=== PATIENT | female | born 1935 | race Caucasian/White ===

== ENCOUNTER 2021-12-01 12:34 | Inpatient (IN) | payer MEDICAID, OTHER ==
[~2021-12-01] VITALS: Ht 162.6 cm; Wt 53.6 kg
[2021-12-01 13:18] LABS: BASOPHILS % 0.5 % (0.0-2.0); EOSINOPHILS % 1.1 % (0.0-5.0); HEMATOCRIT. 30.6 % (36.0-48.0); HEMOGLOBIN. 9.9 g/dL (12.0-16.0); LYMPHOCYTES % 18.1 % (20.0-50.0); MEAN CORPUSCULAR HEMOGLOBIN 30.4 pg (28.0-32.0); MEAN CORPUSCULAR VOLUME 94.3 fL (81.0-99.0); NEUTROPHILS % 77.3 % (40.0-76.0); PLATELET 240 x1000/uL (130-400); RED BLOOD CELL COUNT 3.25 mill/uL (4.2-5.4); RED CELL DISTRIBUTION WIDTH 13.4 % (11.6-14.6)
[2021-12-01 13:28] LABS: CHLORIDE 110 mEq/L (98-107)
[2021-12-01] MEDS ORDERED: ALBUTEROL (0.5%) 2.5MG/0.5ML NEB HHN ONE (14:45)
[2021-12-01] MEDS ORDERED: DEXTROSE 50% WATER 50ML SYRINGE IV NR (14:45)
[2021-12-01] MEDS ORDERED: CALCIUM CHLORIDE 1,000 MG in DEXT 5% WATER 90 ML IV ONE (14:45)
[2021-12-01] MEDS ORDERED: SODIUM BICARBONATE 8.4% 1 MEQ/ML 50ML SYR IV ONE (14:45)
[2021-12-01] MEDS ORDERED: INSULIN REGULAR (HUMULIN R) 300UNITS/3ML VIAL IV ONE (14:45)
[2021-12-01] MEDS ORDERED: SODIUM POLYSTYRENE SULFONATE 15 G/60 ML BOT PO ONE (15:15)
[2021-12-01 21:15] VITALS: BP 175/51
[2021-12-01] MEDS ORDERED: AMLO5TAB4 MT (22:44)
[2021-12-01] MEDS ORDERED: PIOG15TA68 MT (22:47)
[2021-12-01] MEDS ORDERED: ASPI-864 MT (22:47)
[2021-12-01] MEDS ORDERED: ATOR40TA70 MT (22:47)
[2021-12-01] MEDS ORDERED: SERT25TA74 MT (22:47)
[2021-12-01] MEDS ORDERED: ACETAMINOPHEN 325MG TABLET PO PRN (23:45)
[2021-12-01] MEDS ORDERED: TRAMADOL 50MG TABLET PO PRN (23:45)
[2021-12-01] MEDS: AMLODIPINE 5MG TABLET PO SCH (23:45)
[2021-12-01] MEDS ORDERED: ONDANSETRON HCL 4MG/2ML INJ IV PRN (23:45)
[2021-12-02] VITALS (9 sets, daily range): BP systolic 122–153; BP diastolic 40–59
[2021-12-02] MEDS ORDERED: DEXTROSE 50% WATER 50ML SYRINGE IV PRN
[2021-12-02] MEDS: SODIUM CHLORIDE 0.9% 1,000 ML IV SCH ×2 (04:36→12:09)
[2021-12-02 06:38] LABS: BASOPHILS % 0.5 % (0.0-2.0); HEMATOCRIT. 26.6 % (36.0-48.0); LYMPHOCYTES % 22.3 % (20.0-50.0); MEAN PLATELET VOLUME 9.1 fl (7.4-10.4); MONOCYTES % 6.4 % (2.0-8.0); NEUTROPHILS % 69.8 % (40.0-76.0); PLATELET 220 x1000/uL (130-400); RED BLOOD CELL COUNT 2.89 mill/uL (4.2-5.4); RED CELL DISTRIBUTION WIDTH 13.3 % (11.6-14.6)
[2021-12-02] MEDS ORDERED: BLOOD SUGAR DIAGNOSTIC STRIP TEST SCH (07:20)
[2021-12-02] MEDS: BLOOD SUGAR DIAGNOSTIC STRIP TEST SCH ×4 (07:43→20:51)
[2021-12-02] MEDS: INSULIN LISPRO 100 UNITS/ML SUBCUT SCH ×4 (07:43→20:51)
[2021-12-02] MEDS: ASPIRIN 81MG TABLET PO SCH (10:11)
[2021-12-02] MEDS: AMLODIPINE 5MG TABLET PO SCH (10:12)
[2021-12-02] MEDS ORDERED: SODIUM POLYSTYRENE SULFONATE 15 G/60 ML BOT PO NR (13:00)
[2021-12-02] MEDS ORDERED: ATORVASTATIN CALCIUM 40MG TABLET PO SCH (21:00)
[2021-12-02] MEDS ORDERED: SERTRALINE HCL 25MG TABLET PO SCH (21:00)
[2021-12-03] VITALS: BP 141/51
[2021-12-03] MEDS: SODIUM CHLORIDE 0.9% 1,000 ML IV SCH (02:57)
[2021-12-03 04:00] VITALS: BP 138/49
[2021-12-03] MEDS: BLOOD SUGAR DIAGNOSTIC STRIP TEST SCH ×2 (06:28→11:58)
[2021-12-03] MEDS: INSULIN LISPRO 100 UNITS/ML SUBCUT SCH ×2 (07:30→12:03)
[2021-12-03 08:00] VITALS: BP 148/43
[2021-12-03] MEDS: ASPIRIN 81MG TABLET PO SCH (09:37)
[2021-12-03] MEDS: AMLODIPINE 5MG TABLET PO SCH (09:37)
[2021-12-03 12:00] VITALS: BP 133/39
[2021-12-03 12:31] LABS: BASOPHILS % 0.6 % (0.0-2.0); EOSINOPHILS % 2.9 % (0.0-5.0); HEMATOCRIT. 28.2 % (36.0-48.0); HEMOGLOBIN. 9.4 g/dL (12.0-16.0); LYMPHOCYTES % 21.7 % (20.0-50.0); MEAN CORPUSCULAR HEMOGLOBIN 30.9 pg (28.0-32.0); MEAN CORPUSCULAR VOLUME 92.7 fL (81.0-99.0); MEAN PLATELET VOLUME 8.8 fl (7.4-10.4); NEUTROPHILS % 68.8 % (40.0-76.0); PLATELET 222 x1000/uL (130-400); RED BLOOD CELL COUNT 3.04 mill/uL (4.2-5.4); RED CELL DISTRIBUTION WIDTH 13.1 % (11.6-14.6)
[2021-12-03 15:09] VITALS: BP 133/39
== END 2021-12-03 16:47 | disposition home or self-care (01) | DRG 48 ==
LOC: ER 12:47 → 6WST 19:21 → ENRESERV 20:44
PROVIDERS: ADMIT Hospitalist; ATTEND Hospitalist
DX: G90.9 Disorder of the autonomic nervous system, unspecified (principal); N17.9 Acute kidney failure, unspecified; D64.9 Anemia, unspecified; E87.5 Hyperkalemia; E11.9 Type 2 diabetes mellitus without complications; F17.200 Nicotine dependence, unspecified, uncomplicated; I10 Essential (primary) hypertension
CPT/HCPCS: 36415; 71045; 80048; 80053; 82962; 83036; 83880; 85025; 93005; 94640; 97161; 99291; J1815; J3490; J7030; J7060